=== PATIENT | male | born 1995 | race Caucasian/White ===

== ENCOUNTER 2024-05-23 21:02 | Emergency (ER) | payer OTHER, SELFPAY ==
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
[2024-05-23 21:35] VITALS: BP 141/74; PULSE 88; RESP 18; TEMP 36.7; O2SAT 100
--- NOTE | 2024-05-24 00:26 | PC.NURSE ---
edp fredy moralez at bedside for suture repair
[2024-05-24] MEDS: LIDOCAINE HCL 1% LOCAL INJ 10 ML VIAL (00:27)
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
[2024-05-24] MEDS: TETANUS,DIPHTHERIA,AC PERTUSSIS ADULT (0.5 ML) BOOSTRIX IM (01:15)
[2024-05-24 01:24] VITALS: BP 124/62; PULSE 82; RESP 16; O2SAT 100
== END 2024-05-24 01:25 | disposition home or self-care (01) ==
PROVIDERS: Emergency Provider Physician Assistant; PCP Family Medicine
DX: S01.81XA Laceration without foreign body of other part of head, initial encounter (principal); Z23 Encounter for immunization; V28.59XA Other motorcycle passenger injured in noncollision transport accident in traffic accident, initial encounter
CPT/HCPCS: 12013; 70450; 70486; 72125; 90471; 90715; 99284